=== PATIENT | female | born 1940 | race African-American/Black ===

== ENCOUNTER 2018-06-07 01:02 | Inpatient (IN) | payer SELFPAY ==
[~2018-06-07] VITALS: Ht 154.9 cm; Wt 59.4 kg
[2018-06-07] MEDS ORDERED: KETOROLAC 30MG/ML VIAL IV STA (01:55)
[2018-06-07] MEDS ORDERED: HYDRALAZINE 20MG/ML VIAL IV ONE (02:00)
[2018-06-07 02:12] LABS: CLARITY URINE CLEAR (CLEAR); COLOR URINE OTHER (YELLOW); KETONES URINE NEGATIVE (NEGATIVE); LEUKOCYTE ESTERASE URINE NEGATIVE (NEGATIVE); NITRITE URINE NEGATIVE (NEGATIVE); OCCULT BLOOD URINE NEGATIVE (NEGATIVE); PROTEIN URINE NEGATIVE (NEGATIVE); SPECIFIC GRAVITY URINE 1.004 (1.005-1.030); UROBILINOGEN URINE 0.2 E.U./dL (0.2-1.0)
[2018-06-07 02:17] LABS: BASOPHILS % 0.8 % (0.0-2.0); CHLORIDE 106 mEq/L (98-107); EOSINOPHILS % 2.1 % (0.0-5.0); HEMATOCRIT. 36.3 % (36.0-48.0); HEMOGLOBIN. 11.9 g/dL (12.0-16.0); MEAN CORPUSCULAR HEMOGLOBIN 28.9 pg (28.0-32.0); MEAN CORPUSCULAR VOLUME 88.4 fL (81.0-99.0); MEAN PLATELET VOLUME 9.7 fl (7.4-10.4); MONOCYTES % 7.8 % (2.0-8.0); NEUTROPHILS % 53.3 % (40.0-76.0); PLATELET 160 x1000/uL (130-400); RED BLOOD CELL COUNT 4.11 mill/uL (4.2-5.4); RED CELL DISTRIBUTION WIDTH 13.5 % (11.6-14.6)
[2018-06-07] MEDS ORDERED: ASPIRIN 81MG TABLET PO ONE (03:30)
[2018-06-07] MEDS ORDERED: CLONIDINE 0.1MG TABLET PO ONE (03:45)
[2018-06-07] MEDS ORDERED: CEFTRIAXONE 1 G PREMIX 50 ML IV ONE (04:00)
[2018-06-07] MEDS ORDERED: AZITHROMYCIN 500 MG TABLET PO ONE (04:00)
[2018-06-07 04:41] LABS: *AMPHETAMINES SCREEN URINE NEGATIVE (NEGATIVE); *BARBITURATES SCREEN URINE NEGATIVE (NEGATIVE); *BENZODIAZEPINES SCREEN URINE NEGATIVE (NEGATIVE)
[2018-06-07 04:42] LABS: *COCAINE SCREEN URINE NEGATIVE (NEGATIVE); CANNABINOID URINE SCREEN NEGATIVE (NEGATIVE); METHADONE URINE SCREEN NEGATIVE (NEGATIVE); OPIATES URINE SCREEN NEGATIVE (NEGATIVE); PHENCYCLIDINE URINE SCREEN NEGATIVE (NEGATIVE)
[2018-06-07] MEDS ORDERED: GUAIFENESIN 200MG/10ML SUGAR FREE UDC PO PRN (07:15)
[2018-06-07] MEDS ORDERED: DOCUSATE SODIUM 100MG CAPSULE PO PRN (07:15)
[2018-06-07] MEDS ORDERED: MAGNESIUM/ALUMINUM HYDROXIDE/SIMETHICONE 30ML UDC PO PRN (07:15)
[2018-06-07] MEDS ORDERED: ACETAMINOPHEN 325MG TABLET PO PRN (07:15)
[2018-06-07] MEDS ORDERED: HYDRALAZINE 20MG/ML VIAL IV PRN (07:15)
[2018-06-07] MEDS ORDERED: DIPHENHYDRAMINE 50MG/ML VIAL IV PRN (07:15)
[2018-06-07] MEDS ORDERED: IPRATROPIUM/ALBUTEROL 0.5-3(2.5)MG/3ML NEB INH PRN (07:15)
[2018-06-07] MEDS ORDERED: LORAZEPAM 2MG/ML CPJ IV PRN (07:15)
[2018-06-07] MEDS ORDERED: HYDROCODONE/ACETAMINOPHEN 5/325MG TABLET PO PRN (07:15)
[2018-06-07 09:00] VITALS: BP 166/90
[2018-06-07] MEDS ORDERED: ASPIRIN 81MG EC TABLET PO SCH (09:00)
[2018-06-07] MEDS: ENOXAPARIN 40MG/0.4ML SYR SUBCUT SCH (09:59)
[2018-06-07] MEDS: CLONIDINE 0.1MG TABLET PO PRN (10:00)
[2018-06-07 12:00] VITALS: BP 115/68
[2018-06-07] MEDS: SODIUM CHLORIDE 0.9% INJ 3ML FLUSH IVF SCH ×2 (13:28→21:02)
[2018-06-07] MEDS: PANTOPRAZOLE SODIUM 40 MG/VIAL IV SCH (13:32)
[2018-06-07] MEDS ORDERED: LISI-604 MT (14:00)
[2018-06-07] MEDS ORDERED: ATEN-42 MT (14:00)
[2018-06-07] MEDS ORDERED: MECL-127 MT (14:01)
[2018-06-07 15:05] LABS: CREATINE KINASE 122 IU/L (26-192)
[2018-06-07 15:06] LABS: CREATINE KINASE MB FRACTION < 1.0 ng/mL (0.5-3.6)
[2018-06-07] MEDS ORDERED: IOHEXOL-350 100 ML BOTTLE ONE (15:34)
[2018-06-07 17:00] VITALS: BP 166/87
[2018-06-07 20:00] VITALS: BP 143/74
[2018-06-08] VITALS: BP 142/80
[2018-06-08 03:40] VITALS: BP 155/77
[2018-06-08] MEDS: SODIUM CHLORIDE 0.9% INJ 3ML FLUSH IVF SCH ×3 (05:26→21:51)
[2018-06-08 06:17] LABS: CHLORIDE 107 mEq/L (98-107)
[2018-06-08 06:18] LABS: BASOPHILS % 0.7 % (0.0-2.0); EOSINOPHILS % 2.3 % (0.0-5.0); HEMATOCRIT. 33.6 % (36.0-48.0); HEMOGLOBIN. 11.1 g/dL (12.0-16.0); LYMPHOCYTES % 30.2 % (20.0-50.0); MEAN CORPUSCULAR HEMOGLOBIN 28.9 pg (28.0-32.0); MEAN CORPUSCULAR VOLUME 87.4 fL (81.0-99.0); MEAN PLATELET VOLUME 9.9 fl (7.4-10.4); MONOCYTES % 6.5 % (2.0-8.0); NEUTROPHILS % 60.3 % (40.0-76.0); PLATELET 155 x1000/uL (130-400); RED BLOOD CELL COUNT 3.84 mill/uL (4.2-5.4); RED CELL DISTRIBUTION WIDTH 13.9 % (11.6-14.6)
[2018-06-08 06:26] LABS: CREATINE KINASE 106 IU/L (26-192); LDL CHOLESTEROL 111 mg/dL (5-100)
[2018-06-08 06:28] LABS: HDL CHOLESTEROL 51 mg/dL (40-59); T4 FREE 1.03 ng/dL (0.76-1.46)
[2018-06-08] MEDS: HYDROMORPHONE HCL/PF 2MG/ML CPJ IV PRN ×2 (06:55→20:53)
[2018-06-08 08:00] VITALS: BP 207/93
[2018-06-08] MEDS ORDERED: REGADENOSON 0.4 MG/5 ML IV NR (08:15)
[2018-06-08] MEDS: PANTOPRAZOLE SODIUM 40 MG/VIAL IV SCH (11:04)
[2018-06-08] MEDS: ONDANSETRON HCL 4MG/2ML INJ IV PRN ×2 (11:04→21:51)
[2018-06-08] MEDS ORDERED: REGADENOSON 0.4 MG/5 ML IV ONE (11:55)
[2018-06-08 12:00] VITALS: BP 230/120
[2018-06-08] MEDS: ASPIRIN 81MG EC TABLET PO SCH (14:01)
[2018-06-08] MEDS: ENOXAPARIN 40MG/0.4ML SYR SUBCUT SCH (14:02)
[2018-06-08] MEDS: CLONIDINE 0.1MG TABLET PO PRN (15:56)
[2018-06-08 16:00] VITALS: BP 164/78
[2018-06-08 20:00] VITALS: BP 126/64
[2018-06-09] VITALS (7 sets, daily range): BP systolic 129–204; BP diastolic 78–100
[2018-06-09] MEDS: SODIUM CHLORIDE 0.9% INJ 3ML FLUSH IVF SCH ×2 (06:27→14:16)
[2018-06-09] MEDS: ASPIRIN 81MG EC TABLET PO SCH (08:59)
[2018-06-09] MEDS: ENOXAPARIN 40MG/0.4ML SYR SUBCUT SCH (09:00)
[2018-06-09] MEDS: PANTOPRAZOLE SODIUM 40 MG/VIAL IV SCH (09:57)
[2018-06-09] MEDS: CLONIDINE 0.1MG TABLET PO PRN (12:51)
== END 2018-06-09 19:20 | disposition home or self-care (01) | DRG 251 ==
LOC: ER 01:02 → EDBEDREQTM 04:23 → EDBEDREQ 04:23 → ENRESERV 08:00 → 6WST 08:53
PROVIDERS: ADMIT Internal Medicine; ATTEND Internal Medicine
DX: R10.9 Unspecified abdominal pain (principal); I13.10 Hypertensive heart and chronic kidney disease without heart failure, with stage 1 through stage 4 chronic kidney disease, or unspecified chronic kidney disease; E78.5 Hyperlipidemia, unspecified; K76.9 Liver disease, unspecified; N18.9 Chronic kidney disease, unspecified; N20.0 Calculus of kidney; Z85.3 Personal history of malignant neoplasm of breast; Z90.12 Acquired absence of left breast and nipple; Z79.899 Other long term (current) drug therapy
CPT/HCPCS: 36415; 71045; 71275; 76705; 78452; 80061; 80305; 82550; 82553; 83036; 83605; 83880; 84145; 84439; 84443; 84484; 85379; 93005; 93017; 93306; 93970; 96374; 96375; 99285; A9500; C9113; J0360; J0696; J1170; J1650; J1885; J2405; J2785; Q9967